=== PATIENT | female | born 1995 | race Caucasian/White ===

== ENCOUNTER 2022-04-28 17:07 | Emergency (ER) | payer OTHER, SELFPAY ==
[2022-04-28 17:09] VITALS: BP 127/82; PULSE 84; RESP 14; TEMP 36.8; O2SAT 100; BMI 23.7
--- NOTE | 2022-04-28 18:24 | EX.ED.VIS.UR ---
HPI HPI - URI History of Present Illness Chief Complaint: Sore Throat Narrative Narrative: Patient presents with constant mild throat pain and itchiness that she states she has had for 2 months. [facility] and they did a COVID and strep test, both came back negative. She is also complaining of a red and dry R eye. She has seen ophthalmology twice and they have her prescribed her artificial tears. She was told that these eyedrops will take 2 weeks to work, so she is unsure if they are helping or not. She denies fever, chills, rhinorrhea, SOB, and cough. ROS ROS ED Constitutional Constitutional ED: Denies chills or fever(s) Eyes Eyes: Denies blurry vision or change in vision ENT ENT ED: Reports sore throat; Denies ear pain or rhinorrhea Respiratory/Chest Respiratory/Chest: Denies cough, dyspnea or dyspnea on exertion Gastrointestinal Gastrointestinal: Denies abdominal pain, constipation, diarrhea, nausea or vomiting Genitourinary Genitourinary ED: Denies dysuria Musculoskeletal Musculoskeletal: Denies myalgias Integumentary Denies Abrasions or rash Neurologic Neurologic: Denies headache(s) or weakness Psychiatric Psychiatric: Denies anxiety PFSH PFSH Medical History no medical history Home Medications cetirizine 10 mg capsule (Zyrtec) 10 mg PO DAILY #14 caps 04/28/22 [Rx Last Taken Unknown] Allergy/AdvReac Type Severity Reaction Status Date / Time No Known Allergies Allergy Verified 04/28/22 17:08 Surgical History (Updated 04/28/22 @ 18:35 by Kylee Charlton) History of tonsillectomy and adenoidectomy Surgical History no surgical history Social History Smoking Status: Never smoker EXAM Physical Exam Const Vital Signs: 04/28/22 17:09 Temperature 98.2 F Temperature Source Temporal Pulse Rate 84 Respiratory Rate 14 Blood Pressure 127/82 H Blood Pressure Mean 97 Pulse Ox 100 Oxygen Delivery Method Room Air Positive well nourished and well developed General Appearance ED: well developed HEENT Reports moist mucous membranes HEENT Narrative: Very mild injection of pharynx without petechia of palate. Patient has had tonsils removed. normocephalic and atraumatic Eyes PERRL and EOMs intact bilaterally Eyes Narrative: No scleral injection noted bilaterally. No purulent or watery discharge from the eyes bilaterally. Neck no lymphadenopathy, supple and no meningeal signs Resp normal respiratory effort and clear to auscultation bilaterally Auscultation: Negative for rales, rhonchi, wheezes or diminished lung sounds Cardio regular rate, regular rhythm and no murmurs Rate: regular rate GI non-tender, non-distended and no masses Palpation: soft; Negative for hepatomegaly or splenomegaly Back/Spine normal ROM Extremity normal to inspection and full ROM Neuro oriented x3 and no sensory deficits noted Sensorium / Orientation: alert, oriented to person, oriented to place and oriented to time Psych mental status grossly normal Skin Lesions: no lesions Rashes: no rashes MDM MDM MDM Narrative Medical decision making narrative: Because patient has had a negative COVID and strep test today, we will not be performing those. Symptoms seem to be more related to seasonal allergies than to an infectious process. I will be giving her zyrtec and kenolog to help alleviate throat symptoms. I am not concerned for conjunctivitis due to the lack of discharge from the eyes and due to the lack of scleral injection. Discharge Plan Triage Chief Complaint: Sore Throat ED Midlevel Provider: Chrissie Valencia ED Provider: Mark Srinivasan Dx/Rx/DC Orders Clinical Impression: Pharyngitis Prescriptions: New Zyrtec 10 mg capsule 10 mg PO DAILY Qty: 14 0RF Primary Care Provider: Haider Strong Referrals: Armin Aldridge MD [Med Staff - Waiter/Waitress First Class] - 1 Week if not improving Activity Restrictions/Additional Instructions: Follow up with PCP referral if symptoms are not improving. Salt water gargles and throat lozenges may be beneficial for throat pain. Seek medical attention if new or worsened symotoms. Disposition Disposition: Home, Self Care Discharge Date/Time: 04/28/22 19:21
== END 2022-04-28 19:21 | disposition home or self-care (01) ==
PROVIDERS: Emergency Provider Emergency Medicine; PCP Pediatrics; Visit Provider Emergency Medicine
DX: J02.9 Acute pharyngitis, unspecified (principal); Z20.822 Contact with and (suspected) exposure to COVID-19
CPT/HCPCS: 99282

== ENCOUNTER → 2022-05-03 | Outpatient (CLI) | payer OTHER, SELFPAY ==
--- NOTE | 2022-05-03 14:51 | CT_ITS ---
STUDY: CT SOFT TISSUE NECK WITH CONTRAST REASON FOR EXAM: Female, 26 years old. SUBMANDIBULAR GLAND SIALOADENITIS RADIATION DOSAGE (If Supplied By Facility): CTDIvol = ( 9.79 ) mGy, DLP = ( 488.91 ) mGycm TECHNIQUE: The patient was scanned in a multi-detector CT scanner. High resolution transaxial imaging was performed following intravenous administration of 100 CC ISOVUE 370. Sagittal and coronal images were reconstructed. Individualized dose optimization techniques were used for this CT. COMPARISON: None. FINDINGS: Normal bilateral parotid glands. Normal bilateral community engagement coordinator spaces. Normal bilateral parapharyngeal spaces. Normal bilateral carotid spaces. There is a 3 mm rounded calcification in the left cervical region just deep to the left mandibular ramus. This may represent a calculus within the submandibular gland duct. Normal visualized nasopharynx. Normal retropharyngeal space. Normal perivertebral space. Normal visualized bilateral faucial tonsils. The visualized tongue, tongue base and oropharynx are normal. The visualized cervical lymph nodes (levels I-) are within normal size limits, and maintain normal morphology. There is no demonstrated solid or cystic mass lesion. There is no abnormal contrast enhancement. Normal epiglottis, bilateral vallecula and hypopharynx. The pre-epiglottic and paraglottic adipose spaces are normal. Normal visualized bilateral piriform sinuses, aryepiglottic folds, vocal cords, and arytenoid-cricoid articulations. Normal subglottic trachea. Normal bilateral lobes of the thyroid gland. Normal visualized pulmonary apices. Normal visualized paranasal sinuses. Normal visualized cervical spine. CT/Soft Tissue Neck W/WO Contrast IMPRESSION: Questionable 3 mm calculus in the left submandibular gland duct. Electronically Signed: Marco Antonio Mcduffie MD at 15:38 EST ,
== END | disposition home or self-care (01) ==
PROVIDERS: PCP Pediatrics; Referring Provider Otolaryngology Otolaryngology/Facial Plastic Surgery; Visit Provider Otolaryngology Otolaryngology/Facial Plastic Surgery
DX: K11.21 Acute sialoadenitis (principal)
CPT/HCPCS: 70492; Q9967